=== PATIENT | female | born 1940 | race American Indian/Alaskan Native ===

== ENCOUNTER 2016-10-30 14:47 | Emergency (ER) | payer MEDICARE, MEDICAID ==
[2016-10-30] MEDS ORDERED: XOPENEX IH ONE (15:57)
[2016-10-30] MEDS ORDERED: ATROVENT IH ONE (15:57)
[2016-10-30] MEDS ORDERED: DELTASONE PO ONE (15:57)
[2016-10-30] MEDS ORDERED: TYLENOL #3 PO ONE (17:38)
--- NOTE | 2016-10-30 17:39 | XRay Report ---
FINAL REPORT EXAM: XR CHEST ROUTINE 2V HISTORY: cough and congestion TECHNIQUE: PA and lateral chest radiographs PRIORS: None. FINDINGS: No mediastinal shift. Cardiac silhouette is not enlarged. Biapical pleural thickening/scarring. No pneumothorax, effusion, or focal pulmonary opacity. No acute skeletal finding. IMPRESSION: No focal pulmonary opacity.
--- NOTE | 2016-10-30 18:27 | Emergency Department Report ---
Entered by ANU LINARES, acting as scribe for THOMPSON MARTINES PA. - General Chief Complaint: Upper Respiratory Infection Stated Complaint: SOB/SORE THROAT Time Seen by Provider: 10/30/16 15:46 Source: patient Mode of arrival: Ambulatory Limitations: No Limitations - History of Present Illness Initial Comments: 75 year old female with a PMHx asthma, GERD, HTN, high cholesterol presents to the ED c/o an upper respiratory infection that began 2 days ago. Associated symptoms include sore throat, chest pain, SOB, cough, myalgias, but she denies fever, chills, nausea, and vomiting. Rates chest pain a 7/10 and sore throat an 8/10 in severity. Notes Hx of sinus infections. NKDA. LAMBERT Complaint: cough (congested), sore throat, rhinorrhea, nasal congestion, sinus pain Onset/Timin -: days(s) Severity: moderate Severity scale (0 -10): 8 Quality: aching Consistency: constant Improves With: nothing Worsens With: nothing Associated Symptoms: denies other symptoms, myalgias, rhinorrhea, nasal congestion, sore throat, cough (congested), shortness of breath, other ( generalized weakness). denies: fever, chills, diaphoresis, headache, chest pain , abdominal pain, nausea, vomiting, diarrhea, dysuria, rash, confusion, right sweats, weight loss, epistaxis, hoarseness, ear pain Treatments Prior to Arrival: none - Related Data Home Medications Medication Instructions Recorded Confirmed Last Taken Furosemide 20 mg PO DAILY 10/30/16 10/30/16 10/29/16 Hydrochlorothiazide [HCTZ] 50 mg PO QDAY 10/30/16 10/30/16 10/29/16 Omeprazole 20 mg PO DAILY 10/30/16 10/30/16 10/29/16 Rosuvastatin Calcium 20 mg PO DAILY 10/30/16 10/30/16 10/29/16 Valsartan/Hydrochlorothiazide 1 each PO DAILY 10/30/16 10/30/16 10/29/16 [Valsartan-Hctz 320-25 mg Tab] amLODIPine [Norvasc] 10 mg PO DAILY 10/30/16 10/30/16 10/29/16 Previous Rx's Medication Instructions Recorded Last Taken Type Amoxicillin/K Clav Tab [Augmentin 1 tab PO Q12HR #20 tab 10/30/16 Unknown Rx 875 mg] Cetirizine HCl [ZyrTEC] 10 mg PO QDAY #14 capsule 10/30/16 Unknown Rx Fluticasone [Flonase] 1 spray NS QDAY #1 bottle 10/30/16 Unknown Rx predniSONE [Deltasone] 50 mg PO QDAY #5 tab 10/30/16 Unknown Rx Allergies Allergy/AdvReac Type Severity Reaction Status Date / Time No Known Allergies Allergy Unverified 10/30/16 15:01 ED Review of Systems Comment: All other systems reviewed and negative Constitutional: weakness (generalized). denies: chills, fever Eyes: denies: vision change ENT: throat pain. denies: ear pain Respiratory: cough (congested), shortness of breath. denies: orthopnea, SOB with exertion, SOB at rest, stridor Cardiovascular: chest pain. denies: palpitations, dyspnea on exertion, orthopnea Gastrointestinal: denies: abdominal pain, nausea, vomiting, diarrhea Musculoskeletal: myalgia (body aches). denies: back pain, arthralgia Skin: denies: rash Neurological: denies: headache, numbness, paresthesias, confusion, abnormal gait , vertigo ED Past Medical Hx - Past Medical History Previous Medical History?: Yes Hx Hypertension: Yes Hx GERD: Yes Hx Asthma: Yes (bronchitis) Additional medical history: High cholesterol - Surgical History Past Surgical History?: Yes Additional Surgical History: Aman knee surgery, Right knee surgery again 2014, Thyroidectomy - Family History Family history: hypertension - Social History Smoking Status: Never Smoker Substance Use Type: Prescribed - Medications Home Medications: Home Medications Medication Instructions Recorded Confirmed Last Taken Type Amoxicillin/K Clav Tab [Augmentin 1 tab PO Q12HR #20 tab 10/30/16 Unknown Rx 875 mg] Cetirizine HCl [ZyrTEC] 10 mg PO QDAY #14 capsule 10/30/16 Unknown Rx Fluticasone [Flonase] 1 spray NS QDAY #1 bottle 10/30/16 Unknown Rx Furosemide 20 mg PO DAILY 10/30/16 10/30/16 10/29/16 History Hydrochlorothiazide [HCTZ] 50 mg PO QDAY 10/30/16 10/30/16 10/29/16 History Omeprazole 20 mg PO DAILY 10/30/16 10/30/16 10/29/16 History Rosuvastatin Calcium 20 mg PO DAILY 10/30/16 10/30/16 10/29/16 History Valsartan/Hydrochlorothiazide 1 each PO DAILY 10/30/16 10/30/16 10/29/16 History [Valsartan-Hctz 320-25 mg Tab] amLODIPine [Norvasc] 10 mg PO DAILY 10/30/16 10/30/16 10/29/16 History predniSONE [Deltasone] 50 mg PO QDAY #5 tab 10/30/16 Unknown Rx ED Physical Exam - General Limitations: No Limitations General appearance: alert, in no apparent distress - Head Head exam: Present: atraumatic, normocephalic, normal inspection - Eye Eye exam: Present: normal appearance, PERRL, EOMI. Absent: periorbital swelling , periorbital tenderness Pupils: Present: normal accommodation - ENT ENT exam: Present: normal exam, normal orophraynx, mucous membranes moist, normal external ear exam, other (bilateral nasal turbinates erythematous, congested, and swollen. Sinuses NTTP.). Absent: TM's normal bilaterally (TM congested bilaterally) - Expanded ENT Exam Expanded Ear exam: Present: normal external inspection Mouth exam: Present: normal external inspection. Absent: drooling, trismus Teeth exam: Present: normal inspection Throat exam: Positive: normal inspection. Negative: tonsillar erythema, tonsillomegaly, tonsillar exudate, R peritonsillar mass, L peritonsillar mass - Neck Neck exam: Present: normal inspection, full ROM. Absent: tenderness, meningismus, lymphadenopathy - Respiratory Respiratory exam: Present: normal lung sounds bilaterally, wheezes (throughout) , other (congested cough). Absent: respiratory distress, rales, rhonchi, stridor, chest wall tenderness, accessory muscle use, decreased breath sounds, prolonged expiratory - Cardiovascular Cardiovascular Exam: Present: regular rate (S1/S2), normal rhythm. Absent: systolic murmur, diastolic murmur, rubs, gallop - GI/Abdominal GI/Abdominal exam: Present: soft, normal bowel sounds. Absent: distended, tenderness, guarding, rebound, rigid - Extremities Exam Extremities exam: Present: normal inspection, full ROM, normal capillary refill. Absent: tenderness, pedal edema, joint swelling, calf tenderness - Back Exam Back exam: Present: normal inspection, full ROM. Absent: tenderness, CVA tenderness (R), CVA tenderness (L), muscle spasm, paraspinal tenderness, vertebral tenderness, rash noted - Neurological Exam Neurological exam: Present: alert, oriented X3, normal gait, reflexes normal. Absent: motor sensory deficit - Psychiatric Psychiatric exam: Present: normal affect, normal mood - Skin Skin exam: Present: warm, dry, intact, normal color. Absent: rash - Other Other exam information: Chest: sinus and chest congestion, congested cough ED Course Vital Signs 10/30/16 10/30/16 10/30/16 15:05 16:24 16:37 Temperature 98.5 F Pulse Rate 93 H Pulse Rate [ 96 H 98 H Anterior Bilateral Throughout] Respiratory 20 Rate Respiratory 19 19 Rate [Anterior Bilateral Throughout] Blood Pressure 132/98 O2 Sat by Pulse 99 Oximetry - Reevaluation(s) Reevaluation #1: 10/30/16 18:15 Patient received Xopenex 2.5 mg and Atrovent 0.5 mg nebulizer treatment. Deltasone 60 mg by mouth. Status post reevaluation of lung lung sounds are clear. She reports that she has a headache so I gave her Tylenol No. 3 one tablet by mouth. She said her lungs feels better. ED Medical Decision Making - Radiology Data Radiology results: report reviewed Chest x-ray reveals no acute cardiopulmonary findings. - Medical Decision Making ED course: Treatment with bronchitis, cough and sinusitis. Given her multiple comorbidities I will put her on antibiotic. He did with Xopenex 2.5 mg and Atrovent 0.5 mg nebulized in emergency room. She was also given Deltasone 60 mg by mouth and Tylenol No. 3 one tablet by mouth. Chin headache has been relieved and she says she feels better. She said that her chest x-ray was negative for pneumonia.Treatment plan discussed with patient. SHe was understanding. She discharged home with prescription for albuterol inhaler, prednisone, Flonase, Zyrtec and Zithromax. ED Disposition Clinical Impression: Cough Acute bronchitis Qualifiers: Bronchitis organism: unspecified organism Qualified Code(s): J20.9 - Acute bronchitis, unspecified Sinusitis, acute Qualifiers: Sinusitis location: unspecified location Recurrence: recurrent Qualified Code(s ): J01.91 - Acute recurrent sinusitis, unspecified Disposition: DISCHARGED TO HOME OR SELFCARE Is pt being admited?: No Does the pt Need Aspirin: No Condition: Stable Instructions: Acute Bronchitis (ED), Acute Cough (ED), Sinusitis (ED) Additional Instructions: Please see antibiotic as prescribed Follow up with Primary care physician in 2 days Prescriptions: Amoxicillin/K Clav Tab [Augmentin 875 mg] 1 tab PO Q12HR #20 tab Cetirizine HCl [ZyrTEC] 10 mg PO QDAY #14 capsule Fluticasone [Flonase] 1 spray NS QDAY #1 bottle predniSONE [Deltasone] 50 mg PO QDAY #5 tab Referrals: PRIMARY CARE, [Primary Care Provider] - 11/01/16 Forms: Work/School Release Form(ED) This documentation as recorded by the VIJAY pearce JASMINE,accurately reflects the service I personally performed and the decisions made by ,THOMPSON MARTINES PA.
[2016-10-30] MEDS ORDERED: DUONEB 0.5 MG-3 MG/3 ML SOLN IH ONE (18:32)
[2016-10-30 18:36] VITALS: BP 111/79
== END 2016-10-30 18:38 | disposition home or self-care (01) ==
LOC: ED 14:47
DX: J20.9 Acute bronchitis, unspecified (principal); J01.91 Acute recurrent sinusitis, unspecified; I10 Essential (primary) hypertension; K21.9 Gastro-esophageal reflux disease without esophagitis; J45.909 Unspecified asthma, uncomplicated; E78.00 Pure hypercholesterolemia, unspecified; Z90.89 Acquired absence of other organs
CPT/HCPCS: 71020; 94640; 99283; J7512